=== PATIENT | female | born 1990 | race Hispanic/Latino ===

== ENCOUNTER 2023-04-03 11:21 | Observation (INO) | payer MEDICAID, OTHER ==
[2023-04-03 11:45] VITALS: BMI 44.8
[2023-04-03] MEDS ORDERED: Betamet Acet/Betamet Na Ph 30 MG/5 ML VIAL ONE (12:00)
[2023-04-03] MEDS ORDERED: Acetaminophen 500 MG TAB PO PRN (12:06)
[2023-04-03] MEDS ORDERED: fentaNYL 50 mcg/mL 1 mL Vial SLOW IVP PRN (12:06)
[2023-04-03] MEDS ORDERED: hydrALAZINE 20 MG/ML VIAL SLOW IVP PRN (12:06)
[2023-04-03] MEDS ORDERED: Ondansetron PF 4 MG/2 ML Vial IVP PRN (12:06)
[2023-04-03] MEDS ORDERED: Promethazine HCl 25 MG/ML VIAL IM PRN (12:06)
[2023-04-03] MEDS: Betamet Acet/Betamet Na Ph 30 MG/5 ML VIAL IM SCH (12:08)
[2023-04-03] MEDS ORDERED: Oxytocin 30 units/NS 500 ML 500 ML IV SCH (12:15)
[2023-04-03] MEDS ORDERED: Lactated Ringer's 1,000 ML IV SCH ×2 (12:15)
[2023-04-03] MEDS ORDERED: Lidocaine 1% (PF) 30 ML VIAL SC PRN (12:20)
[2023-04-03] MEDS ORDERED: Penicillin G Potassium 5 MILL.UNITS in Sodium Chloride 0.9% 100 ML IVPB SCH (12:30)
[2023-04-03 12:59] LABS: Hematocrit 33.5 % (34.9-44.5); Hemoglobin 11.7 g/dL (12.0-15.5); Mean Corpuscular HGB CONC 34.9 g/dL (32.0-36.0); Mean Corpuscular Volume 83.1 fl (81.6-98.3); Platelet Count 287 10x3/uL (150-450); RBC Distribution Width 13.3 % (11.5-14.5); Red Blood Cell (RBC) Count 4.03 10x6/uL (3.90-5.03)
[2023-04-03] MEDS ORDERED: NIFEdipine 10 MG CAP PO SCH (13:00)
[2023-04-03 15:09] LABS: HBSAg Index 0.18 S/CO (0-0.99); Hep B Surf Ag - L&D Non-Reactive S/CO (NonReactive)
[2023-04-03 15:11] LABS: Syphilis Antibody Nonreactive (Nonreactive)
[2023-04-03] MEDS: Penicillin G 2.5 MILL.units 2.5 MILL.UNITS in Premix 1 BAG IVPB SCH ×2 (17:30→21:26)
[2023-04-03] MEDS: NIFEdipine 10 MG CAP PO SCH (19:05)
[2023-04-03] MEDS ORDERED: HumaLOG 300 UNITS/3 ML VIAL SC SCH (20:00)
[2023-04-04] MEDS: NIFEdipine 10 MG CAP PO SCH ×3 (01:30→14:24)
[2023-04-04] MEDS: Penicillin G 2.5 MILL.units 2.5 MILL.UNITS in Premix 1 BAG IVPB SCH (01:30)
[2023-04-04] MEDS: Betamet Acet/Betamet Na Ph 30 MG/5 ML VIAL IM SCH (12:08)
[2023-04-05 19:33] LABS: Group B Streptococcus by PCR Not Detected (NotDetected)
== END 2023-04-04 17:06 | disposition home or self-care (01) ==
LOC: CSHLD/OP 11:21 → CSHLD 12:36
PROVIDERS: ADMIT Family Medicine; ATTEND Family Medicine
DX: O60.03 Preterm labor without delivery, third trimester (principal); Z3A.33 33 weeks gestation of pregnancy; Z79.899 Other long term (current) drug therapy
CPT/HCPCS: 36415; 36416; 76815; 85027; 86780; 86850; 86900; 86901; 87340; 87653; 96372; 96374; 96376; 99285; G0378; J0702; J1815; J2540; J3490; J7120

== ENCOUNTER 2023-04-17 06:05 | Inpatient (IN) | payer MEDICAID ==
[2023-04-17 06:58] VITALS: BMI 43.9
[2023-04-17 07:44] LABS: Fetal Membranes Rupture No Membranes Rupture (No Rupture)
[2023-04-17] MEDS ORDERED: Carboprost 250 MCG/ML AMP IM PRN (09:11)
[2023-04-17] MEDS ORDERED: Promethazine HCl 25 MG/ML VIAL IM PRN ×3 (09:11→20:44)
[2023-04-17] MEDS ORDERED: Misoprostol 200 MCG TAB PR PRN (09:11)
[2023-04-17] MEDS ORDERED: Diphenoxylate HCl/Atropine Tablet PO PRN (09:11)
[2023-04-17] MEDS ORDERED: Ondansetron PF 4 MG/2 ML Vial IVP PRN ×3 (09:11→20:44)
[2023-04-17] MEDS ORDERED: Lidocaine 1% (PF) 30 ML VIAL SC PRN (09:11)
[2023-04-17] MEDS ORDERED: hydrALAZINE 20 MG/ML VIAL SLOW IVP PRN ×2 (09:11→20:44)
[2023-04-17] MEDS ORDERED: Docusate 100 MG CAP PO PRN (09:11)
[2023-04-17] MEDS ORDERED: Zolpidem Tartrate 5 MG TAB PO PRN (09:11)
[2023-04-17] MEDS ORDERED: Acetaminophen 500 MG TAB PO PRN (09:11)
[2023-04-17] MEDS ORDERED: Methylergonovine 0.2 MG/ML VIAL IM PRN (09:11)
[2023-04-17] MEDS ORDERED: fentaNYL 50 mcg/mL 1 mL Vial SLOW IVP PRN (09:11)
[2023-04-17] MEDS ORDERED: Oxytocin 30 units/NS 500 ML 500 ML IV SCH ×2 (09:15)
[2023-04-17] MEDS ORDERED: Lactated Ringer's 1,000 ML IV SCH (09:15)
[2023-04-17 09:48] LABS: Hematocrit 35.9 % (34.9-44.5); Mean Corpuscular HGB CONC 33.4 g/dL (32.0-36.0); Mean Corpuscular Hemoglobin 28.4 pg (27.0-33.0); Mean Corpuscular Volume 84.9 fl (81.6-98.3); Mean Platelet Volume 10.6 fl (7.4-10.4); Platelet Count 255 10x3/uL (150-450); RBC Distribution Width 13.5 % (11.5-14.5); Red Blood Cell (RBC) Count 4.23 10x6/uL (3.90-5.03); White Blood Cell (WBC) Count 7.3 10x3/uL (3.5-10.5)
[2023-04-17] MEDS: fentaNYL/Ropivacaine Epidural 100 ML ONE (10:24)
[2023-04-17 10:25] LABS: HBSAg Index 0.21 S/CO (0-0.99); Hep B Surf Ag - L&D Non-Reactive S/CO (NonReactive)
[2023-04-17 10:26] LABS: Syphilis Antibody Nonreactive (Nonreactive); Syphilis Antibody Index 0.05 S/CO (<1.00 Non-Reactive)
[2023-04-17] MEDS ORDERED: Lactated Ringer's 500 ML IV PRN (10:40)
[2023-04-17] MEDS ORDERED: Naloxone HCl 0.4 mg/ml Vial IVP PRN ×2 (10:40)
[2023-04-17] MEDS ORDERED: ePHEDrine Sulfate 50 MG/10 ML VIAL SLOW IVP PRN (10:40)
[2023-04-17] MEDS ORDERED: Moisturizing Cream (Eucerin) 113 GM JAR TOP PRN (10:40)
[2023-04-17] MEDS ORDERED: fentaNYL 2 mcg/Ropivacaine 0.2% Epidural 100 ML CADD EPIDURAL SCH (10:45)
[2023-04-17] MEDS ORDERED: Communication Order-Pharmacy FS SCH (10:45)
[2023-04-17] MEDS: Ampicillin 2 GM VIAL ONE (13:19)
[2023-04-17] MEDS ORDERED: Ampicillin 2 GM in Sodium Chloride 0.9% 100 ML IVPB SCH (14:00)
[2023-04-17] MEDS: diphenhydrAMINE 50 MG/ML VIAL IVP PRN (15:17)
[2023-04-17] MEDS ORDERED: Bupivacaine 0.25% HCL 30 ML VIAL ONE (20:01)
[2023-04-17] MEDS ORDERED: ePHEDrine Sulfate 50 MG/10 ML VIAL ONE (20:01)
[2023-04-17] MEDS ORDERED: Bisacodyl 10 MG SUPP PR PRN (20:44)
[2023-04-17] MEDS ORDERED: diphenhydrAMINE 25 MG CAP PO PRN (20:44)
[2023-04-17] MEDS ORDERED: Lanolin Ointment 7 GM TUBE TOP PRN (20:44)
[2023-04-17] MEDS ORDERED: Milk Of Magnesia 30 ML UDCUP PO PRN (20:44)
[2023-04-17] MEDS ORDERED: Benzocaine-Menthol 82.5 ML CAN TOP PRN (20:44)
[2023-04-17] MEDS: Docusate 100 MG CAP PO SCH (21:14)
[2023-04-17] MEDS: Ibuprofen 800 MG TAB PO SCH (21:14)
[2023-04-18] MEDS: HYDROcodone/Acetaminophen 5/325 mg Tablet PO PRN (02:06)
[2023-04-18] MEDS: Oxytocin 30 units/NS 500 ML 500 ML ONE (06:24)
[2023-04-18] MEDS: Prenatal Vitamin 1 TAB PO SCH (07:45)
[2023-04-18] MEDS: Ferrous Sulfate 325 MG TAB PO SCH (14:12)
[2023-04-18] MEDS: Boostrix 0.5 ML (Tdap) VIAL (>/=7 yrs of age) IM ONE (16:55)
[2023-04-18] MEDS: Acetaminophen 325 MG TAB PO PRN (23:48)
[2023-04-19 08:44] VITALS: BP 112/55; TEMP 98
== END 2023-04-19 12:10 | disposition home or self-care (01) | DRG 807 ==
LOC: CSHLD/OP 06:05 → CSHLD 09:10 → CSHPP 20:20
PROVIDERS: ADMIT Family Medicine; ATTEND Family Medicine
PROC: 10E0XZZ Delivery of Products of Conception, External Approach (ICD-10-PCS; principal; 2023-04-17)
PROC: 0UQMXZZ Repair Vulva, External Approach (ICD-10-PCS; 2023-04-17)
PROC: 10907ZC Drainage of Amniotic Fluid, Therapeutic from Products of Conception, Via Natural or Artificial Opening (ICD-10-PCS; 2023-04-17)
PROC: 3E033XZ Introduction of Vasopressor into Peripheral Vein, Percutaneous Approach (ICD-10-PCS; 2023-04-17)
DX: O24.420 Gestational diabetes mellitus in childbirth, diet controlled (principal); Z37.0 Single live birth; O99.214 Obesity complicating childbirth; Z3A.35 35 weeks gestation of pregnancy; E66.01 Morbid (severe) obesity due to excess calories; O71.82 Other specified trauma to perineum and vulva
CPT/HCPCS: 36415; 51702; 84112; 85027; 86780; 86850; 86900; 86901; 87340; 99285; J0290; J0665; J1200